=== PATIENT | female | born 1965 | race Two or more races ===

== ENCOUNTER 2020-02-18 09:01 | Outpatient (CLI) | payer OTHER | END 2020-02-18 09:14 | disposition home or self-care (01) | LOC: TOM 09:01 | PROVIDERS: ATTEND Internal Medicine Gastroenterology | DX: N20.0 Calculus of kidney (principal); K57.90 Diverticulosis of intestine, part unspecified, without perforation or abscess without bleeding; D12.8 Benign neoplasm of rectum; Z80.0 Family history of malignant neoplasm of digestive organs ==